=== PATIENT | male | born 1995 | race Two or more races ===

== ENCOUNTER 2022-09-01 21:48 | Emergency (ER) | payer SELFPAY ==
[~2022-09-01] VITALS: Ht 177.8 cm; Wt 120.2 kg
[2022-09-01 22:30] VITALS: BP 148/71
--- NOTE | 2022-09-01 22:47 | NUR ---
RT MADE AWARE PT FOR NEB TREATMENT
[2022-09-01] MEDS ORDERED: IPRATROPIUM NEB FS 0.5 MG/2.5 ML AMPUL.NEB ONE (22:53)
[2022-09-01] MEDS ORDERED: ALBUTEROL FS 2.5 MG/3 ML VIAL.NEB ONE (22:53)
[2022-09-01] MEDS ORDERED: predniSONE 20 MG TABLET ONE (22:55)
[2022-09-01] MEDS ORDERED: FAMOTIDINE (20 MG) 20 MG TABLET ONE (22:56)
[2022-09-01] MEDS ORDERED: diphenhydrAMINE HCL 50 MG CAPSULE ONE (22:56)
[2022-09-01] MEDS ORDERED: FAMOTIDINE (20 MG) 20 MG TABLET PO ONE (23:00)
[2022-09-01] MEDS ORDERED: predniSONE 10 MG TABLET PO ONE (23:00)
[2022-09-01] MEDS ORDERED: diphenhydrAMINE HCL 50 MG CAPSULE PO ONE (23:00)
[2022-09-01] MEDS ORDERED: ALBUTEROL FS 2.5 MG/3 ML VIAL.NEB NEB ONE (23:00)
[2022-09-01] MEDS ORDERED: IPRATROPIUM NEB FS 0.5 MG/2.5 ML AMPUL.NEB NEB ONE (23:00)
[2022-09-01] MEDS ORDERED: PRED20TA PO (23:27)
[2022-09-01] MEDS ORDERED: LORA10TA7 PO (23:27)
== END 2022-09-01 23:46 | disposition home or self-care (01) ==
LOC: ER 21:55
DX: T78.40XA Allergy, unspecified, initial encounter (principal); L50.9 Urticaria, unspecified; Z79.899 Other long term (current) drug therapy; X58.XXXA Exposure to other specified factors, initial encounter
CPT/HCPCS: 99284; 94640; Q0163; J7512